=== PATIENT | female | born 2000 | race Caucasian/White ===

== ENCOUNTER 2019-12-13 22:33 | Emergency (ER) | payer OTHER ==
[2019-12-13] MEDS ORDERED: Acetaminophen 325 MG TAB ONE (23:08)
[2019-12-13] MEDS ORDERED: HYDROcodone/Acetaminophen 5/325 mg Tablet ONE (23:08)
--- NOTE | 2019-12-13 23:22 | RAD ---
XR Hand Rt 3 View STANDARD: 12/13/2019 11:00 PM CLINICAL INDICATION: Trauma to the right hand with right hand pain COMPARISON: None. FINDINGS: Bones: No acute osseous abnormality. Joints: Joint spaces are preserved. Soft Tissue: Soft tissues are normal appearing. IMPRESSION: No acute osseous abnormality..
--- NOTE | 2019-12-13 23:25 | RAD ---
XR Shoulder Rt 3 View STANDARD: 12/13/2019 11:00 PM CLINICAL INDICATION: Trauma with right shoulder pain. COMPARISON: None. FINDINGS: Bones: No acute fracture. Glenohumeral joint: Normal alignment. AC joint: Normal alignment. Visualized lung: Clear. Soft tissues: Within normal limits. IMPRESSION: No acute osseous abnormality.
== END 2019-12-14 00:58 | disposition home or self-care (01) ==
LOC: ERS 22:33
DX: S40.011A Contusion of right shoulder, initial encounter (principal); S60.221A Contusion of right hand, initial encounter; V80.42XA Occupant of animal-drawn vehicle injured in collision with car, pick-up truck, van, heavy transport vehicle or bus, initial encounter